=== PATIENT | female | born 1985 | race Caucasian/White ===

== ENCOUNTER → 2021-12-16 | Emergency (ER) | payer SELFPAY | LOC: LB.ED 09:49 | DX: G43.909 Migraine, unspecified, not intractable, without status migrainosus (principal) | CPT/HCPCS: 96372; 99282; 99283 ==

== ENCOUNTER 2022-12-28 08:07 | Emergency (ER) | payer BC ==
[2022-12-28] MEDS ORDERED: Ketorolac 30 MG/ML SDV IVPUSH ONE (08:28)
[2022-12-28] MEDS ORDERED: diphenhydrAMINE 50 MG/ML SDV IVPUSH ONE (08:28)
[2022-12-28] MEDS ORDERED: Ondansetron 4 MG/2 ML SDV IVPUSH ONE (08:28)
[2022-12-28] MEDS ORDERED: Ondansetron 4 MG/2 ML SDV ONE (08:40)
[2022-12-28] MEDS ORDERED: diphenhydrAMINE 50 MG/ML SDV ONE (08:40)
[2022-12-28] MEDS ORDERED: Ketorolac 30 MG/ML SDV ONE (08:40)
[2022-12-28] MEDS ORDERED: Sodium Chloride 0.9% 500 ML IV ONE (08:42)
== END 2022-12-28 09:30 | disposition home or self-care (01) ==
LOC: LB.ED 08:07
DX: G43.909 Migraine, unspecified, not intractable, without status migrainosus (principal); Z88.8 Allergy status to other drugs, medicaments and biological substances
CPT/HCPCS: 96374; 96375; 99283; 99284; J1200; J1885; J2405; J7040